=== PATIENT | female | born 1990 ===

== ENCOUNTER 2020-12-16 15:30 | Inpatient (IN) | payer OTHER ==
[~2020-12-16] VITALS: Ht 160 cm; Wt 68.0 kg
[2021-01-01] MEDS ORDERED: PRENATAL TABLE1 EAC1 PO (08:33)
== END 2021-01-03 11:30 | disposition home or self-care (01) | DRG 807 ==
LOC: LDR 01-01 06:21 → OB/GYN 01-01 14:57
PROVIDERS: ADMIT Obstetrics & Gynecology; ATTEND Obstetrics & Gynecology
PROC: 10E0XZZ Delivery of Products of Conception, External Approach (ICD-10-PCS; principal; 2021-01-01)
PROC: 0W8NXZZ Division of Female Perineum, External Approach (ICD-10-PCS; 2021-01-01)
PROC: 4A1HXFZ Monitoring of Products of Conception, Cardiac Rhythm, External Approach (ICD-10-PCS; 2021-01-01)
DX: O80 Encounter for full-term uncomplicated delivery (principal); Z37.0 Single live birth; Z3A.39 39 weeks gestation of pregnancy; Z20.822 Contact with and (suspected) exposure to COVID-19

== ENCOUNTER → 2020-12-29 | Outpatient (CLI) | payer OTHER ==
[~2020-12-29] MED LIST: PRENATAL TABLE1 EAC1 PO
== END | disposition home or self-care (01) ==
LOC: NST 10:37
PROVIDERS: ATTEND Obstetrics & Gynecology
DX: Z34.83 Encounter for supervision of other normal pregnancy, third trimester (principal)

== ENCOUNTER 2021-08-29 08:00 | Outpatient (CLI) | payer OTHER | END 2021-08-29 08:30 | disposition home or self-care (01) | LOC: PPH VACUNA 08:00 | PROVIDERS: ATTEND Emergency Medicine Pediatric Emergency Medicine | DX: Z23 Encounter for immunization (principal) ==

== ENCOUNTER 2023-04-09 12:00 | Inpatient (IN) | payer OTHER ==
[~2023-04-09] VITALS: Ht 160 cm; Wt 72.6 kg
== END 2023-04-16 12:37 | disposition home or self-care (01) | DRG 807 ==
LOC: LDR 04-14 04:59 → OB/GYN 04-14 04:59
PROVIDERS: ADMIT Obstetrics & Gynecology; ATTEND Obstetrics & Gynecology
PROC: 10E0XZZ Delivery of Products of Conception, External Approach (ICD-10-PCS; principal; 2023-04-14)
PROC: 0HQ9XZZ Repair Perineum Skin, External Approach (ICD-10-PCS; 2023-04-14)
PROC: 4A1HXCZ Monitoring of Products of Conception, Cardiac Rate, External Approach (ICD-10-PCS; 2023-04-14)
DX: O70.0 First degree perineal laceration during delivery (principal); Z37.0 Single live birth; Z3A.39 39 weeks gestation of pregnancy; Z20.822 Contact with and (suspected) exposure to COVID-19

== ENCOUNTER 2023-06-06 08:01 | Emergency (ER) | payer OTHER ==
[~2023-06-06] VITALS: Ht 160 cm; Wt 63.5 kg
== END 2023-06-06 08:59 | disposition home or self-care (01) ==
LOC: ER 08:01
DX: J03.80 Acute tonsillitis due to other specified organisms (principal); B96.89 Other specified bacterial agents as the cause of diseases classified elsewhere

== ENCOUNTER 2023-07-26 08:54 | Emergency (ER) | payer OTHER ==
[~2023-07-26] VITALS: Ht 160 cm; Wt 61.2 kg
[2023-07-26] MEDS ORDERED: MAXITROL EYE DRO5 ML OP (09:44)
== END 2023-07-26 09:49 | disposition home or self-care (01) ==
LOC: ER 08:54
DX: H10.31 Unspecified acute conjunctivitis, right eye (principal)